=== PATIENT | female | born 1990 | race Caucasian/White ===

== ENCOUNTER 2016-12-04 20:42 | Inpatient (IN) | payer OTHER ==
[~2016-12-04] VITALS: Ht 149.9 cm; Wt 40.0 kg
[~2016-12-04 20:42] MED LIST: ALPRAZOLAM1 MG PO; ATIVAN0.5 MG PO; ATIVAN1 MG PO; BACTRIM DS TAB1 EACH PO; BENADRYL25 MG PO; BENZONATATE100 MG PO; BLOOD GLUCOSE1 EACH MC; BUPRENORPHINE HC2 MG SL; BUPRENORPHINE HC8 MG SL; CALCIUM CARBON200 MG PO; CALCIUM500 MG PO; CATAPRES-TTS 21 EACH TOP; CEPHALEXIN500 MG PO; CIPRO500 MG PO; CLONAZEPAM1 MG PO; CLONIDINE HCL0.1 MG PO; DIAZEPAM2 MG PO; DILAUDID2 MG PO; EFFEXOR XR75 MG PO; ERGOCALCIF50000 UNIT PO; HUMALOG100 UNIT/1 SUB-Q; LAMOTRIGINE100 MG PO; LAMOTRIGINE25 MG PO; LANTUS100 UNIT/1 SUB-Q; LEVAQUIN500 MG PO; LORAZEPAM1 MG PO; METHADONE HCL10 MG PO; METHADONE HCL5 MG PO; METRONIDAZOLE250 MG PO; MIRALAX17 GM PO; MIRTAZAPINE15 MG PO; NAPROSYN375 MG PO; NOVOLOG100 UNITS/ SUB-Q; PANCREAZE PO; PANCRELIPASE D1 EACH PO; PROMETHAZI6.25 MG/5 PO; PROMETHAZINE HC25 M1 PO; PROMETHAZINE12.5 M1 PO; TRAMADOL HCL50 MG PO; ULTRAM50 MG PO; VISTARIL25 MG PO; VISTARIL50 MG PO; VITAMIN D1000 UNI1 PO; VITAMIN D250000 UNIT PO; ZOFRAN ODT4 MG PO; ZOFRAN ODT8 MG PO
--- NOTE | 2016-12-05 01:21 | NUR ---
PT ADMITTED TO ROOM 114 FROM ER WITH DX SMALL BOWEL OBSTRUCTION. THIS IS ONGOING, HAS CYSTIC FIBROSIS, HAS PAIN AND NAUSEA, HAD NOT VOMITED, BUT WAS MEDICATED FOR NAUSEA WELL PAIN. AWAKE AND ALERT, WATCHING TV. IV INFUSIN, PULSE OX READING 92 OXYGEN LEVEL AT THIS TIME.
--- NOTE | 2016-12-05 01:45 | NUR ---
PT ABLE TO RETAIN ENEMA X 10 MIN BEFORE NEEDING TO GET UP. MOST OF ENEMA CAME OUT WITH MANY CHUNKS OF BM. NOTE NO BM WAS PRESENT IN LOWER RECTUM WITH A RECTAL CHECK. PT BOWEL SOUNDS HYPOACTIVE. REQUESTED AND RECEIVED APPLEJUICE. STATED HER PAIN WAS BETTER, WAS HER NAUSEA POST MEDICATION
--- NOTE | 2016-12-05 04:31 | NUR ---
PT COMPLAINED OF PAIN NEAR 0350, DENIES THE NEED TO GET UP TO THE COMMODE. STATES SHE HAS BEEN DOZING OFF AND ON, BUT MOSTLY AWAKE. STATES SHE USES MARIJUANA TO ASSIST IN SLEEPING WHEN AT HOME. MEDICATED WITH PRN ZOFRAN, AND DILAUDID.
--- NOTE | 2016-12-05 06:21 | NUR ---
PT ADMITTED FRO SBO, PAST HISTORY OF SUCH, HAS CYSTIC FIBROSIS, ALERT AND ORIENTATED. NO VOMITING, BUT MEDICATED FOR NAUSEA X 2 THIS SHIFT, WITH PAIN HIGH 9/10 ABD AREA, MED X 2 FOR PAIN WELL. FLEETS ENEMA, GIVEN WITH VERY LITTLE HARD STOOL OUT, VOIDED X 1. FREQUENT USE OF MARIJUANA, USES TO HELP WITH SLEEP, PT AWAKE MOSTLY THIS SHIFT. CLR LIQUIDS, DRANK APPLE JUICE WITH NO EMESIS. HYPOACTIVE BOWELS.
--- NOTE | 2016-12-05 06:47 | NUR ---
ASSESSMENT OF BOWEL SOUNDS, NO CHANGE SINCE ADMISSION. HYPOACTIVE, NO INCREASE IN ABD TENDERNESS, NO VOMITING. FATHER AT BEDSIDE, WITH PT, WATCHING TV.
--- NOTE | 2016-12-05 08:37 | NUR ---
medicated with dilaudid 0.5mg and phenergar 12.5mg
--- NOTE | 2016-12-05 08:49 | NUR ---
PATIENT AWAKE IN BED. EMPTY GARBAGE. FRESH WATER. UPDATE WHITE CARLOS. PATIENT STATED SHE DID NOT NEED ANYTHING AT THIS TIME.
--- NOTE | 2016-12-05 12:04 | NUR ---
WENT IN AND CHECKED ON PATIENT SHE WAS SLEEPING AND I WOKE HER UP TO DO VITALS. SHE SAID SHE JUST WANTED TO SLEEP AND WE KEEP WAKING HER UP. I SAID SORRY AND I WILL LET THE NURSE KNOW.
--- NOTE | 2016-12-05 13:37 | NUR ---
MEDICATED WITH PHENERGAN 12.5MG IV AND DILAUDID 0.5MG IV C/O ABD PAIN AND UPSET STOMACH
--- NOTE | 2016-12-05 14:12 | NUR ---
PT IS RESTING IN BED WITH CALL LIGHT IN REACH. PT DID NOT NEED ANYTHING ELSE
--- NOTE | 2016-12-05 14:45 | NUR ---
DID NOT DISTURB DO TO PATIENT WANTING TO SLEEP. YURIY MCINTOSH TOOK OVER PATIENT CARE SHE DID NOT HAVE MANY PATIENTS.
--- NOTE | 2016-12-05 15:27 | NUR ---
FLEETS ENEMA GIVEN AT THIS TIME
--- NOTE | 2016-12-05 17:20 | NUR ---
PT IS RESTING IN BED WATCHING TV PT DID NOT NEED ANYTHING ELSE
--- NOTE | 2016-12-05 17:28 | NUR ---
Pt has been in bed most of shift. Turns self in bed. Pt on clear liquids, eating very small bites, denies feeling nauseated, no emesis, "Just not hungry", - Pancrease meds not given at noon as pt did not ate lunch. - Continues to c/o back and abd pain, Has been medicated with Dilaudid, toradol per c/o pain and phenergan to decrese stomach irritation from the above meds.- - Thyroid panel drawn earlier as per orders. CBG were 167 this am and 91 at lunch, received ss novolog at 0830. -Pt received fleets enema x1 as per orders, no results, not passing gas very hypoactive bts auscultated. - Pt slightly unsteady on feet this am, better later in day. Currently resting peacefully. will do CBG and give her the 1600 pancrease granules when awake at her request. No resp distress bowel tones present. Up to bsc for voiding, urine dark yellow colored diminished lung sounds bilat, cdb encouraged, cont pulse ox in place. sats WNL ox in place. Currenlty sleeping at this time,
--- NOTE | 2016-12-05 18:25 | NUR ---
MEDICATED WITH DILAUDID 0.5MG IV C/O ABD AND BACK PAIN. NO RESULTS FROM ENEMA. WATCHING TV
--- NOTE | 2016-12-05 20:00 | NUR ---
RECEIVED REPORT AT 1900. FOUND PT IN BED ALERT AND AWAKE. PT WAS TRYING TO DRINK SOME CLEAR LIQUIDS.
--- NOTE | 2016-12-05 22:00 | NUR ---
PT SO FAR RECEIVED 12.5MG OF IV PHENERGAN AND DILAUDED 0.5MG IV. PAIN AND NAUSEA ARE NOT REALLY RELIEVED WITH PRN MEDS AVAILABLE. PT HAS BOWEL TONES IN ALL QUADRANTS AND IS STILL PASSING GAS. BG WAS 143, PT RECEIVED 1 UNIT OF NOVOLOG INSULINE. PT IS WATCHING TV AT THIS TIME.
--- NOTE | 2016-12-06 01:00 | NUR ---
PAIN AND NAUSEA ARE STILL NOT UNDER CONTROL, BOWEL TONES ARE STILL NORMALLY ACTIVE. PT STATED THAT HER SYMPTOMS ARE STAYING THE SAME BUT DOES NOT WANTS AN NG TUBE.
--- NOTE | 2016-12-06 04:00 | NUR ---
PT IS STILL AWAKE. PT STILL HAS NAUSEA. RASH WAS CALLED EARLIER AND SHE INCREASED DILAUDED TO 1MG Q3HRS IV. PT HAS NOT SLEPT AT ALL THIS SHIFT.
--- NOTE | 2016-12-06 04:41 | NUR ---
SO FAR NAUSEA AND PAIN HAVE NOT BEEN CONTROLLED WELL AT ALL. PT IS ONLY GETTING MINIMAL RELIEF FROM BOTH. PT HAS NORMAL ACTIVE BOWEL TONES AND IS PASSING SOME GAS. V/S ARE WNL. PT HAS NOT SLEPT ALL NIGHT.
--- NOTE | 2016-12-06 08:38 | NUR ---
PATIENT SITTING UP IN BED, ROCKING BACK AND FORTH. REQUESTING PHENERGAN AND DILAUDID IV. NOTED 100 ML OF BILE SUBTANCE IN BLUE BAG. ADMINISTERED 12.5 MG OF PHENERGAN IV, PATIENT NOW RESTING BACK WITH EYES CLOSED. RATED PAIN 10/10 ON PAIN SCALE AND STATES " WITH DILAUDID IT TAKES EDGE OFF." PROVIDED PATIENT WITH FAN AND COLD CLOTHS. DISCUSSED POC FOR DAY. ENCOURAGED AMBULATION IN HALLS. WILL ADMINISTER MORNING MEDICATIONS WHEN NAUSEA RESOLVES.
--- NOTE | 2016-12-06 09:03 | NUR ---
CHARGE SPOKE WITH DR. NGUYEN IN REGARDS TO POC WITH PAIN CONTROL AND NAUSEA. NO NEW MEDICATION ORDERS. PATIENT IS TO AMBULATE IN HALLS. DISCUSSED WITH PATIENT, AND DISCUSSED BENEFITS OF AMBULATION IN HALLS. PATIENT STATED " OKAY BUT I JUST DON'T FEEL WELL". ADMINISTERED 1MG OF DILAUDID AND AGREED ON PLAN TO AMBULATE AT 0930. PATIENT NOW RESTING BACK IN BED WITH EYES CLOSED. MEDICATION FROM MORNING PASS CONTINUES TO SIT IN CUP AT BEDSIDE.
--- NOTE | 2016-12-06 09:37 | NUR ---
PATIENT REFUSED TO AMBULATE IN THE HALLS AGREED EARLIER. STATES " I JUST GOT SETTLED, I DON'T WANT TO WALK RIGHT NOW, PLEASE I WILL AT 1000, I PROMISE". REVERBALIZED IMPORTANCE OF AMBULATING IN HALLS. PATIENT VERBALIZED UNDERSTANDING, WILL REAPPROACH AT 1000.
--- NOTE | 2016-12-06 10:15 | NUR ---
PATIENT VERBALIZED FRUSTRATION WITH GETTING UP, BUT ONCE UP AMBULATING IN X2 LAPS, TOLERATED WELL. NO COMPLAINTS OF PAIN AT THIS TIME, AND NAUSEA RESOLVED. PATIENT TAKING MORNING MEDICATIONS NOW.
--- NOTE | 2016-12-06 10:44 | NUR ---
PATIENT HAS NOT VOIDED SINCE 0600 THIS MORNING AND HAS HAD MINIMAL INPUT. ENCOURAGED PATIENT TO GET UP TO BATHROOM, PATIENT REFUSED AT THIS TIME STATING " I JUST DON'T HAVE TO GO". REPORTED TO DR. BARRIGA. NO NEW ORDERS.
--- NOTE | 2016-12-06 13:00 | NUR ---
REPORT RECEIVED FROM ELI THOMPSON, ASSUMED CARE FOR PATIENT. PATIENT STATING 10/10 PAIN IN STOMACH AND BACK, COMPLAINT OF NAUSEA. IV PHENERGEN, AND IV DILAUDID ADMINISTERED TO PATIENT. PATIENT NOW OFF FLOOR FOR CT. IV SALINE LOCKED.
--- NOTE | 2016-12-06 15:13 | NUR ---
PT STATING 8/10 PAIN IN STOMACH, BACK. PT STILL COMPLAINING OF NAUSEA. WILL CONTINUE TO REASSESS. PT REQUESTED SOME APPLE JUICE. CALL LIGHT AT BEDSIDE.
--- NOTE | 2016-12-06 15:50 | NUR ---
AFTERNOON ASSESSMENT COMPLETE. BOWEL TONES PRESENT IN ALL QUADRANTS, LUNGS SOUND CLEAR IN ALL LOBES. PT COMPLAINS OF 8/10 PAIN, PRN IV DILAUDID 1 MG ADMINISTERED. PT ALSO COMPLAINS OF NAUSEA, NO VOMITTING. PT DID TAKE SOME BITES OF JELLO AND DRINKS OF APPLE JUICE, TOLERATED WELL. PT FRIEND AT BEDSIDE, IV NS INFUSING AT 125 ML/HR. PT STATES THAT MAYBE HAS HAD SOME FLATUS. WILL CONTINUE TO REASSESS.
--- NOTE | 2016-12-06 15:52 | NUR ---
AWAKE IN BED. SAID SHE WAS FELLING NAUSEATED. TOLD JAY HER NURSE. FRESH ICE WATER. REFUSED SHOWER
--- NOTE | 2016-12-06 16:58 | NUR ---
PT COMPLAINING OF NAUSEA. PRN IV PHENERGEN ADMINISTERED. PT STATES PAIN AT 8/10, IV DILAUDID "HELPS A LITTLE BIT". WILL CONTINUE TO ASSESS. CALL LIGHT IN REACH.
--- NOTE | 2016-12-06 18:15 | NUR ---
PT HAS CONSISTENLTY HAD 8-10/10 PAIN IN ABDOMEN AND BACK WELL NAUSEA. DILAUDID AND PHENERGEN IV MEDICATIONS HAVE BEEN ADMINISTERED ORDERED THROUGHOUT SHIFT. PT DID HAVE SOME EMESIS EARLY IN SHIFT. PT WAS ABLE TO AMBULATE TWO LAPS AROUND THE FLOOR TODAY. IV NS INFUSING AT 125 ML/HR, CONTINUES TO BE MONITORED ON TELE. BOWEL SOUNDS ACTIVE IN ALL QUADRANTS.
--- NOTE | 2016-12-06 19:30 | NUR ---
RECEIVED REPORT AT 1900. FOUNG PT SITTING IN BED BEING NAUSEADED. PT STATED PAIN IS 9/10.
--- NOTE | 2016-12-06 21:45 | NUR ---
ABD SOUNDS ARE ALL HYPOACTIVE, PT IS NOT PASSING GAS, PT STILL HAS NAUSEA AND 9/10 PAIN. ALL RIGHT LOBES ARE CLEAR, LEFT LOBES ARE DIMINISHED. V/S ARE WNL.
--- NOTE | 2016-12-07 00:55 | NUR ---
PT AT THIS TIME IS SLEEPING.
--- NOTE | 2016-12-07 03:44 | NUR ---
PT IS AWAKE NOW WITH NAUSEA AND PAIN. WARM PADS WERE PROVIDED
--- NOTE | 2016-12-07 04:34 | NUR ---
PT IS SLEEPING AT THIS TIME.
--- NOTE | 2016-12-07 04:34 | NUR ---
THERE HAS BEEN NO CHANGE IN STATUS FOR THIS PT. PT IS STILL VERY PAINFUL, PT HAS CONSTANT NAUSEA. URINE OUTPUT FOR FIRST 8HRS OF SHIFT WAS 475ML. BOWEL TONES ARE HYPOACTIVE IN ALL FOUR QUADRANTS AND TENDER TO TOUCH. ABD IS MODERATELY DISTENDED. V/S ARE WNL.
--- NOTE | 2016-12-07 05:35 | NUR ---
0700 MEDICATION WILL NOT BE GIVEN BY ME BECAUSE PT ONLY TAKES IT WHILE EATING. I WILL RELATED THAT TO DAY SHIFT.
--- NOTE | 2016-12-07 07:05 | NUR ---
BEDSIDE REPORT RECEIVED FROM ELI SALAMANCA. ASSUMED CARE FOR PT. PT RESTING IN BED WATCHING TV, COMPLAINING OF 8/10 PAIN, NAUSEA. WILL CONTINUE TO REASSESS.
--- NOTE | 2016-12-07 08:13 | NUR ---
IN PT ROOM, ATTEMPTS X 2 AT BLOOD DRAW BY RNS AFTER LAB UNABLE TO DRAW BLOOD FOR ORDERED LABS. PT BLOOD GLUCOSE CHECKED, 60. OFFERED PT CLEAR LIQUID TRAY, JELLO, JUICE. PT ALSO EXPERIENCING NAUSEA, IV PHENERGEN ADMINISTERED. EXPLAINED TO PT IMPORTANCE OF EATING, DRINKING TO BRING UP BLOOD SUGAR LEVELS. PT STATED UNDERSTANDING. PT FRUSTRATED AT MULTIPLE ATTEMPTS FOR LAB DRAW. CALL LIGHT IN REACH, WILL CONTINUE TO ASSESS.
--- NOTE | 2016-12-07 09:42 | NUR ---
PT USED BEDSIDE COMMODE THEN RETURNED TO BED. PT DID NOT NEED ANYTHING ELSE
--- NOTE | 2016-12-07 11:05 | NUR ---
BLOOD GLUCOSE RE CHECKED, 164. PATIENT'S FATHER IN ROOM AT BEDSIDE, CALL LIGHT IN REACH.
--- NOTE | 2016-12-07 11:15 | NUR ---
PATIENT UP, AMBULATED 2 LAPS AROUND THE MED SURG FLOOR. PT TOLERATED WELL. STILL COMPLAINT OF ABDOMINAL PAIN. STATES "FEELS LIKE PARTS OF STOMACH IS GOING TO BURST". PT BACK TO BED, SITTING UP WITH FATHER AT BEDSIDE.
--- NOTE | 2016-12-07 11:24 | NUR ---
PATIENT SITTING UP IN BED. PATIENT WILL CALL WHEN SHE IS READY FOR A SHOWER.
--- NOTE | 2016-12-07 12:00 | NUR ---
ELI FRANCISCO ATTEMPT TO GET BLOOD FROM IV SITE FOR LABS. SITE WILL NOT YIELD ENOUGH BLOOD RETURN FOR ORDERED LABS. PT REFUSED ADDITIONAL NEEDLE POKES FROM LAB AT THIS TIME.
--- NOTE | 2016-12-07 12:47 | NUR ---
PT REQUESTING HEAT PACKS FOR ABDOMEN. COMPLAINING OF NAUSEA, PAIN AFTER IV PHENERGEN, IV DILAUDID ADMINISTRATION. WILL CONTINUE TO ASSESS. PT STILL HAS NOT HAD BM, BUT STATES HAS PASSED GAS. CALL LIGHT IN REACH.
--- NOTE | 2016-12-07 13:14 | NUR ---
CHECKED ON PT, PT SLEEPING, AWOKE WHEN RN ENTERED ROOM. PT DENIES NEEDING TO USE RESTROOM. HAD 400 ML URINE OUTPUT AT 1000. LEFT PT TO REST. WILL REASSESS.
--- NOTE | 2016-12-07 15:06 | NUR ---
PT UP TO COMMODE. STATING 12/05 PAIN IN ABDOMEN. FLATUS HEARD BY RN. PT ABLE TO AMBULATE 2 LABS AROUND FLOOR. EXPERIENCING NAUSEA WITH AMBULATION ESPECIALLY. PT SAID SHE FELT LIKE SHE WAS GOING TO PASS OUT DUE TO THE NAUSEA. 300 ML OUT IN URINE, NO BOWEL MOVEMENT AT THIS TIME. WILL CONTINUE TO ASSESS.
--- NOTE | 2016-12-07 15:43 | NUR ---
VERBAL ORDER FROM DR. NGUYEN FOR LAB TO DC ORDERED LABS NOT ABLE TO BE DRAWN WITH MULTIPLE ATTEMPTS, PT REFUSING FURTHER NEEDLE POKES AT THIS TIME. UPDATED ON PT CONDITION, PASSING GAS, NO BM.
--- NOTE | 2016-12-07 16:31 | NUR ---
PT COMPLAINING OF NAUSEA, PRN IV PHENERGEN ADMINISTERED. PT COMPLAINS OF 8/10 PAIN IN ABDOMEN. BOWEL TONES PRESENT IN ALL QUADRANTS, ABDOMEN STILL DISTENDED, TENDER. PTS FATHER IN ROOM.
--- NOTE | 2016-12-07 18:22 | NUR ---
PT ALERT, ORIENTED X3, DOES NOT KNOW DATE. PT STARTED ON ORAL LACTULOSE, BOWEL TONES ACTIVE IN ALL QUADRANTS, UP TO COMMODE FOR BMS MULTIPLE TIMES TODAY. PT ADVANCED TO ADA DIET, TOLERATING MEALS WELL. URINE QUANTITY SUFFICIENT, BREN[place] WAS DC'D TODAY. PT CONTINUES TO HAVE EDEMA IN ANKLES BILATERALLY. LUNGS SOUND CLEAR, PO LASIX ADDED TO MEDICATIONS. INSULIN DETEMIR BID, REGULAR INSULIN 10 UNITS TID WITH GLUCOSE CHECKS ALSO ORDERED WITH MEALS. PTS BLOOD GLUCOSE WAS 338 PRIOR TO DINNER. PT HAD VISITS FROM [place] ([place]) AND GRANDDAUGHTERS MANDO AND JUSTIN. VITAL SIGNS, BP WNL TODAY.
--- NOTE | 2016-12-07 18:33 | NUR ---
LAB WAS UNABLE TO DRAW MORNING LABS TODAY, LABS CANCELLED PER DR. PATRICK TAN AND PATIENTS REFUSAL TO BE POKED ADDITIONALLY. IV SITE DID NOT YIELD SUFFICIENT AMT FOR ORDERED LABS. PT ABLE TO AMBULATE 2 LAPS 2X THIS SHIFT. PT CONTINUES TO COMPLAIN OF NAUSEA AND PAIN IN ABDOMEN OF 8-10/10 PAIN. PT HAS STILL NOT HAD BOWEL MOVEMENT, BUT HAS PASSED FLATUS. PRN DILAUDID AND PHENERGEN HAVE BEEN ADMINISTERED AVAILABLE FOR PT. PT'S EVENING GLUCOSE WAS 90.
--- NOTE | 2016-12-07 23:15 | NUR ---
PT REQUESTED SOMETHING FOR NAUSEA. MEDICATED WITH ZOFRAN. WHEN ASSESSING PT, ACTIVE BOWEL SOUNDS, STATES SHE HAS BEEN PASSING GAS, BUT HAVING SHARP STABING PAINS IN STOMACH. WONDERING IF SHE HAS A BOWEL MOVEMENT, WOULD SHE BE ABLE TO LEAVE OR WOULD SHE HAVE STAY LONGER. REASSURED PT SHE WOULD BE ABLE TO HAVE THAT CONVERSATION WITH HER DRLeo WHEN THAT OCCURS.
--- NOTE | 2016-12-08 00:18 | NUR ---
PT CALLED, REQUESTED SOMETHING FOR PAIN, 01/05 PAIN. MEDICATED WITH PRN DILAUDID IV. PT AWAKE WATCHING TV.
--- NOTE | 2016-12-08 01:29 | NUR ---
PT CALLED TO LET RN KNOW IV PUMP SOUNDING. ONCE IN ROOM, PT REQUESTED PHENERGAN FOR NAUSEA. CONTINUES TO HAVE ACTIVE BOWEL SOUNDS, HAS NOT VOMITED SINCE THIS NURSE CAME ON SHIFT AT 1900. MEDICATED WITH PHENERGAN IV, REPLACED IV BAG. PT STATES WHILE HER PAIN HAS RESOVED SLIGHTLY, SHE STILL HURTS. ENCOURAGED PT TO LAY ON LEFT SIDE, BUT SHE CHOSES TO LAY ON BACK.
--- NOTE | 2016-12-08 03:30 | NUR ---
UNABLE TO GIVE THE PAIN MED IV DUE TO INFILTRATED IV SITE. RIGHT HAND SWOLLEN, FOR ARM SLIGHTLY SWOLLEN, PT DENIES PAIN IN HAND/ARM. NO REDDNESS. IV DC'D, WARM PACK AND ELEVATION TO RIGHT ARM/HAND. SUPERVIOR ATTEMPTING TO RESTART PT, PT IS A DIFFICULT START.
--- NOTE | 2016-12-08 04:25 | NUR ---
NOTIFIED DR. NGUYEN OF THE PT DIFFICULTY TO HAVE IV STARTED, AWAITING TACTICAL AIR CONTROL PARTY MANAGER TO ASSESS. ORDER RECEIVED FOR PO DILUADID AT THIS TIME.
--- NOTE | 2016-12-08 04:34 | NUR ---
MED WITH 2 MG DILAUDID PO GIVEN AT THIS TIME. PT ANXIOUS, REASSURED PT THAT MOLD CAR PUSHER HAS SPOKEN TO RESEARCH COMPLIANCE SPECIALIST. UP TO THE BATHROOM AT THIS TIME
--- NOTE | 2016-12-08 06:27 | NUR ---
PT REPORTS 10/10 ABDOMINAL PAIN, 1MG IV DILAUDID GIVEN. PT ALSO REPORTS NAUSEA, 12.5MG IV PHENERGAN ADMINISTERED. PT DENIES FURTHER REQUESTS.
--- NOTE | 2016-12-08 06:41 | NUR ---
PT REQUIRED MULT TIMES FOR IV STICK POST INFILTRATED IV IN RIGHT HAND. UP AND AMBULATED CURRIE X 1, NO BM'S. VOIDING WITHOUT DIFFICULTY. MED FOR NAUSEA AND PAIN MULT TIMES THIS SHIFT. HYPOACTIVE BOWEL SOUNDS. ANXIOUS WHEN IV STARTS WERE UNABLE. TECHNOLOGY COACH ABLE TO START IV AFTER MULT ATTEMPTS. DR. NGUYEN AWARE OF THE DIFFICULTY OF THE IV STARTS.
--- NOTE | 2016-12-08 06:51 | NUR ---
PATIENT REQUEST TWO HOT PACKS AND A WARM BLANKET. CALL LIGHT WITHIN REACH. NO FURTHER REQUEST AT THIS TIME.
--- NOTE | 2016-12-08 09:00 | NUR ---
SHIFT ASSESSMENT DONE. PATIENT REPORTED 9/10 ABD PAIN. PATIENT WAS MEDICATED. IV SITE ASSESS AND SKIN IS COLD AND UPPER ARM APPEARS TO BE SWELLING. IV STOP AND NOTIFIED DR NGUYEN, SHE REQUEST CONSULT WITH DR GARNER FOR CENTRAL LINE PLACEMENT. PATIENT WAS INFORMED ABOUT THAT.
--- NOTE | 2016-12-08 11:00 | NUR ---
patient has been resting all morning, the nurse approached me and let me know that she needs to ambulate 3 times today but she did not want to walk at the time.
[2016-12-08] MEDS ORDERED: HYDROXYZINE PAM50 MG PO (11:11)
[2016-12-08] MEDS ORDERED: PROMETHAZINE HC50 MG PO (11:12)
--- NOTE | 2016-12-08 11:14 | NUR ---
Medications reconciled with pharmacy records and patient interview. Buprenorphine held while inpatient, pain control with hydromorphone
--- NOTE | 2016-12-08 11:25 | NUR ---
DR NGUYEN AND DR GARNER WERE IN PATIENT ROOM TO DISCUSS PLAN OF CARE. PATIENT AGREED WITH MD FOR CENTRAL LINE PLACEMENT. FATHER AT BEDSIDE.
--- NOTE | 2016-12-08 12:05 | NUR ---
RIGHT INTERNAL JUGULAR INSERTED BY DR GARNER. PATIENT TOLERATED WELL. XRAY CALLED.
--- NOTE | 2016-12-08 13:10 | NUR ---
DR GARNER WAS CALLED REGARDING XRAY RESULT FOR CENTRAL LINE PLACEMENT. DR GARNER OK TO USE LINE.
--- NOTE | 2016-12-08 13:35 | NUR ---
PATIENT REQUESTED PAIN MED, FOR 9/10 ABD PAIN. PATIENT WAS MEDICATED. WAS TO BATHROOM TO VOID. REMAINS NAUSEATED DESPITE ANTIEMETIC. NO APPARENT DISTRESS NOTED.
--- NOTE | 2016-12-08 17:07 | NUR ---
PATIENT RESTING IN BED, REPORTED PAIN AND NAUSEA DESPITE PAIN AND ANTIEMETIC. RESTING IN BED AT THIS TIME.
--- NOTE | 2016-12-08 18:19 | NUR ---
PATIENT HAD A FAIR DAY. INTERNAL JUGULAR PLACED BY DR GARNER. AND OK TO USE. PATIENT AMBULATE IN HER ROOM 3 TIMES. HAD A BM THIS PM. QS U/O. STILL COMPLAINT OF CONSTANT NAUSEA AND PAIN. FLUID INFUSING @125ML/HR. PATIENT IS WEAK. SBA.
--- NOTE | 2016-12-08 19:15 | NUR ---
BEDSIDE REPORT RECEIVED BY OFFGOING RN. PT REPORTS NAUSEA, PRN PHENERGRAN TO BE ADMINISTERED BY OFFGOING RN. PT SITTING UP IN BED WITH HER DAD AT BEDSIDE. DENIES OTHER NEEDS. CALL LIGHT WITHIN REACH.
--- NOTE | 2016-12-08 20:05 | NUR ---
PT ASSESSMENT COMPLETED. PT STATES THAT PAIN AND NAUSEA ARE A LITTLE BETTER. STAT LAB DRAW COMPLETED VIA IJ LINE, LINE FLUSHED, 10 ML OF BLOOD WASTED. PT TOLERATED WELL. PT REPORTS TENDERNESS TO ABD WHEN AUSCULTATING BT'S. BT'S ACTIVE. PT REPORTS MED SIZED SOFT BM "A LITTLE WHILE AGO". ORDER FOR GASTROGRAFIN EXPLAINED TO PT. PT STATES THAT SHE DOESN'T THINK SHE CAN DRINK IT WITHOUT BEING SICK. EDUCATION AND ENCOURAGEMENT PROVIDED. PT STATES THAT SHE WILL ATTEMPT TO DRINK THE GASTROGRAFIN IN APPLE JUICE.
--- NOTE | 2016-12-08 20:45 | NUR ---
ORDER FOR 100 ML OF GASTROGRAFIN CLARIFIED AND CONFIRMED WITH MD. GASTROGRAFIN DILUTED IN APPLE JUICE PER PT REQUEST. PT DRINKS 1 SIP, STATES "I CAN'T DRINK THIS, IT TASTES LIKE BARF!" EDUCATION PROVIDED. PT STATES THAT SHE WILL TRY TO DRINK IT. WILL CONTINUE TO MONITOR.
--- NOTE | 2016-12-08 21:50 | NUR ---
REASSESSED WHETHER PT TAKING GASTROGRAFIN. PT STATES THAT SHE WILL NOT BE ABLE TO CONTINUE DRINKING IT. STATES THAT IT TASTES TOO TERRIBLE. MD NOTIFIED. ORDER FOR BOWEL PREP M[place]AL[place] IN GATORADE ORDER RECEIVED. PT NOTIFIED. SHE AGREES THAT SHE WILL BE ABLE TO DRINK THE GATORADE. DENIES OTHER NEEDS AT THIS TIME. CALL LIGHT WITHIN REACH.
--- NOTE | 2016-12-08 22:45 | NUR ---
PT CALLS, REPORTS NAUSEA AND PAIN. PRN ZOFRAN AND DILAUDID ADMINISTERED. PT HAS YET TO DRINK ANY GATORADE, STATES THAT SHE HAS BEEN TOO NAUSEATED. PT REPORTS THAT SHE HAS BEEN IN THE BATHROOM, HAD ANOTHER BM. PT DENIES OTHER NEEDS AT THIS TIME, SITTING UP IN BED WATCHING TV. CALL LIGHT WITHIN REACH.
--- NOTE | 2016-12-09 00:19 | NUR ---
PT REPORTS NAUSEA, REQUESTS PRN PHENERGRAN. ADMINISTED DILULTED IN 20 ML OF NS, INFUSED OVER 10 MINUTES ON THE PUMP. WILL REASSESS IN 10 MINUTES. PT DENIES OTHER NEEDS. STATES THAT SHE HAS BEEN PASSING GAS. BECKY CONTINUES TO SIT AT BEDSIDE. PT REPORTS THAT SHE HAS BEEN ABLE TO DRINK "SOME". ENCOURAGED PT TO DRINK MORE. PT STATES UNDERSTANDING. CALL LIGHT WITHIN REACH.
--- NOTE | 2016-12-09 00:59 | NUR ---
PT RESTING IN BED WITH EYES CLOSED. DOES NOT WAKE UPON FIELD CANE SCALER HELPER IN DOORWAY. CALL LIGHT WITHIN REACH.
--- NOTE | 2016-12-09 02:00 | NUR ---
PT SITTING UP IN BED, REPORTS PAIN INCREASED TO 8/10. REQUESTS PRN DILAUDID, ADMINISTERED. PT DENIES OTHER NEEDS. PT CONTINUES TO WORK ON 1ST CUP OF BOWEL PREP. WILL CONTINUE TO MONITOR. CALL LIGHT WITHIN REACH.
--- NOTE | 2016-12-09 02:45 | NUR ---
PT RESTING WITH EYES CLOSED, RESPIRATIONS EVEN AND UNLABORED. PT WAKES EASILY UPON WRITERS ENTRY TO ROOM. PT RATES PAIN 8/10 TO ABD. PT ASKS HOW MUCH BOWEL PREP SHE WILL HAVE TO DRINK. EDUCATION REINFORCED. PT STATES UNDERSTANDING. FINISHING 1ST CUP WHILE WOODWORKING MACHINIST AT BEDSIDE. PT ASSESSMENT COMPLETE. BT'S ACTIVE, PT REPORTS ABD TENDERNESS WHILE AUSCULTATING BT'S. ABD CONTINUES TO BE FIRM. PT UP TO BEDSIDE COMMODE TO HAVE BM. PT STATES CONCERN THAT THE BOWEL PREP IS "OVER DOING IT". PT'S CONCERNS ADRESSED. PT STATES UNDERSTANDING. CONTINUE TO ENCOURAGE PT TO DRINK BOWEL PREP. PT DENIES FURTHER NEEDS. CALL LIGHT WITHIN REACH.
--- NOTE | 2016-12-09 03:48 | NUR ---
PT RESTING IN BED WITH EYES CLOSED. RESPIRATIONS EVEN AND UNLABORED. PT APPEARS TO BE SLEEPING. PT WAKES BRIEFLY WHEN CRANBERRY SORTER ENTERS THE ROOM, QUICKLY FALLS BACK TO SLEEP. CALL LIGHT WITHIN REACH.
--- NOTE | 2016-12-09 04:54 | NUR ---
PT AWAKE MOST OF NIGHT, DILAUDID X 2 AND PHENERGRAN X 1 THIS SHIFT. ABD DISTENDED, FIRM, TENDER. BT'S ACTIVE. BM X 3 THIS SHIFT. CONTINUES TO C/O NAUSEA/PAIN. BOWEL PREP INITIATED FOR EVACUATION. PT IS DRINKING GATORADE VERY SLOWLY WITH CONTINUAL ENCOURAGEMENT. IJ LINE WITH 3 LUMENS. NS @ 125. ACCUCHECKS, SSI, AND LONG ACTING INSULIN. PT INDEPENDENT IN ROOM BUT WEAK.
--- NOTE | 2016-12-09 05:22 | NUR ---
PT UTILIZES CALL LIGHT REQUESTING PAIN MEDICATION. RATES PAIN 8/10 TO ABD AFTER UP USING BEDSIDE COMMODE. PRN DILAUDID ADMINISTERED. PT DOZING OFF AND ON DURING SLOW PUSH OF DILAUDID. PT REQUESTS PHENERGRAN FOR NAUSEA. DENIES OTHER NEEDS AT THIS TIME. ANOTHER CUP OF BOWEL PREP PROVIDED. PT STATES "I DON'T THINK I CAN KEEP DRINKING THIS." ENCOURAGEMENT PROVIDED. CALL LIGHT WITHIN REACH.
--- NOTE | 2016-12-09 09:33 | NUR ---
PT SITTING UP IN BED. DRANK APPLE JUICE, DID NOT HAVE ANY FURTHER BREAKFAST. C/O NAUSEA, NO EMESIS. GAVE ZOFRAN 4 MG ODT PRN.
--- NOTE | 2016-12-09 10:31 | NUR ---
PT RESTING QUIETLY, NO S/S DISTRESS OR DISCOMFORT.
--- NOTE | 2016-12-09 13:54 | NUR ---
PT SITTING UP IN BED, WITH TV ON. DAD AT BEDSIDE. PT STRUGGLED TO DECIDE IF I SHOULD COME IN OR NOT. I INTRODUCED MYSELF, EXTENDED A BLESSING AND TOLD HER I WOULD CHECK BACK LATER.
--- NOTE | 2016-12-09 14:49 | NUR ---
DR. ADAMS DISCUSSED WHEN TO RESUME PT'S HOME MEDICAITON, BUPRENORPHINE WITH MARIA VICTORIA WEST, PHARMACIST. DR. ADAMS INSTRUCTED THIS RN TO HOLD AFTERNOON DOSE OF BUPRENORPHINE, AND THAT THIS MEDICATION MAY BE STARTED AT EVENING DOSE.
--- NOTE | 2016-12-09 16:42 | NUR ---
PT UP AMBULATING IN HALLS WITH MOTHER. STEADY ON FEET, TOLERATING WELL.
--- NOTE | 2016-12-09 19:20 | NUR ---
BEDSIDE REPORT RECEIVED FROM OFFGOING NURSE. PT SITTING UP IN BED WITH HER MOTHER PRESENT. PT DENIES NEEDS AT THIS TIME. CALL LIGHT WITHIN REACH.
--- NOTE | 2016-12-09 21:00 | NUR ---
PT ASSESSMENT COMPLETE. PT RATES PAIN 7/10. SCHEDULED PAIN MEDICATION ADMINISTERED. PT QUESTIONING WHEN SHE WILL BE ABLE TO HAVE HER PHENERGRAN. PT REQUESTING CHICKEN BROTH. STATES THAT SHE WOULD LIKE TO HAVE TOMATO SOUP AND GRILLED CHEESE SANDWHICH. UNDERSTANDS THE CURRENT LIMITIATIONS OF HER DIET ORDER. EDUCATION PROVIDED REGARDING TAKING DIET SLOWLY. PT STATES UNDERSTANDING. ABDOMEN REMAINS FIRM. BT'S ACTIVE. PT REPORTS TENDERNESS/WINCES WITH ABDOMINAL AUSCULTATION. PT HAS SMALL AMOUNT OF GASTROGRAFIN REMAINING AT BEDSIDE. PT DENIES FURTHER NEEDS AT THIS TIME. CALL LIGHT WITHIN REACH.
--- NOTE | 2016-12-09 22:30 | NUR ---
PT UTILIZES CALL LIGHT, REQUESTS MORE CHICKEN BROTH. PT AGAIN INQUIRING REGARDING TIMING OF PHENERGRAN ADMINISTRATION. EDUCATION REINFORCED REGARDING MEDICATION AVAILABILITY. PT STATES UNDERSTANDING. PT'S MOTHER PLANS TO STAY THE NIGHT WITH PT; ASSISTED WITH MAKING COUCH INTO BED. PT DENIES FURTHER NEEDS. CALL LIGHT WITHIN REACH.
--- NOTE | 2016-12-10 01:13 | NUR ---
PATIENT CALLED, STATED SHE NEEDS HELP. SHE HAD BM/LOOSE STOOL ALL OVER HER 2GOWNS AND ON BED SHEETS. TOOK HER TO THE TOILET HELPED HER CLEANED UP, FROM WAIST TO TOES, CHANGED GOWN AND BACK TO BED. PATIENT STATED SHE FELT EMBARRASSED. SHE
--- NOTE | 2016-12-10 03:45 | NUR ---
PT RESTING IN BED WITH EYES CLOSED. RESPIRATIONS EVEN AND UNLABORED. PT APPEARS TO BE SLEEPING. CALL LIGHT WITHIN REACH.
--- NOTE | 2016-12-10 07:11 | NUR ---
PT ASSESSMENT COMPLETED AFTER PT SLEPT THROUGH THE NIGHT. PT DENIES PAIN. BEGINS COUGHING/WRETCHING COMPLAING OF NAUSEA. STATES "MY NAUSEA IS SO BAD IN THE MORNING." PT UP TO USE THE BATHROOM. PT HAVING LIQUID BOWEL MOVEMENTS. PT STATES "THIS IS WHAT I WARNED THEM ABOUT", "I SHOULD NOT HAVE TO DRINK ANYTHING ELSE TO MAKE ME HAVE A BOWEL MOVEMENT RIGHT?" PT'S ABDOMEN REMAINS DISTENDED, TENDER. PT CONTINUES TO REQUEST DIET ADVANCEMENT. STATES "I JUST WANT TO GO HOME, I'M OVER IT". PHENERGRAN ADMINISTERED FOR NAUSEA. PT STATES IMPROVEMENT.
--- NOTE | 2016-12-10 07:36 | NUR ---
PT REQUESTED TO ADVANCE DIET. ALSO STATED THAT SHE DID NOT WANT TO TAKE GASTROGRAFIN THIS AM. NOTIFIED DR. ADAMS OF ABOVE NOTED VIA TELEPHONE, RECIEVED TORB: ADVANCE DIET TOLERATED. DR. ADAMS AWARE THAT PT IS GOING TO REFUSE AM GASTROGRAFIN.
--- NOTE | 2016-12-10 08:26 | NUR ---
NOTIFIED DR. ADAMS THAT PT WAS HYPOGLYCEMIC THIS AM, 69, THEN 72, AND THAT PT IS EATING FULL LIQUIDS AND DRINKING ORANGE JUICE AND CHOCOLATE MILK, AND WILL BE RECHECKED. ASKED IF HE WANTED PT TO RECIEVE AM DOSE OF LEVAMIR, DR. ADAMS ASKED THAT THIS DOSE BE HELD.
--- NOTE | 2016-12-10 09:15 | NUR ---
PT'S BG RECHECKED, NOW 129. PT DENIES S/S HYPOGLYCEMIA.
--- NOTE | 2016-12-10 10:06 | NUR ---
PT IN BED, SLEEPING SOUNDLY. NO S/S DISTRESS OR DISCOMFORT. PT ATE YOGURT, APROXIMATELY 1/2 OF APPLESAUCE, JELLO, DRANK ORANGE JUICE AND CHOCOLATE MILK FOR BREAKFAST.
[2016-12-10] MEDS ORDERED: MIRALAX17 GM PO (10:18)
--- NOTE | 2016-12-10 12:53 | NUR ---
VISITED WITH PT ON DC IN [facility]. SHE WAS HOLDING SOME ROSES-CREATING QUITE A STIR WITH STAFF WITH THE [employer] AND [employer]. THIS SEEMED TO GIVE HER QUITE A BIT OF ENJOYMENT. HER MOTHER THANKED ALL THE STAFF FOR CARING FOR HER. EXTENDED A BLESSING-SHE GAVE A BIG SMILE
--- NOTE | 2017-01-05 12:15 | OR ---
[facility] [address], [place] [address] Signed DATE OF SERVICE: 12/08/2016 PREOPERATIVE DIAGNOSES: Dehydration, poor peripheral access, needing a central venous access. Cystic fibrosis and multiple medical problems, currently inspissation of enteric secretions and partial small bowel obstruction. POSTOPERATIVE DIAGNOSES: Dehydration, poor peripheral access, needing a central venous access. Cystic fibrosis and multiple medical problems, currently inspissation of enteric secretions and partial small bowel obstruction. PROCEDURE: Right internal jugular Arrow blue tip triple-lumen catheter placement. SURGEON: Caron Garner MD. ANESTHESIA: Lidocaine 1%. INDICATION: This 26-year-old white woman is a patient of Dr. Penelope Harkins and admitted for possible bowel obstruction, most likely related to inspissated secretions of upper gastrointestinal tract. She usually takes MiraLAX and is on pancreatic enzyme replacement therapy but has had a bout of essentially obstipation. Peripheral access is extremely poor and various attempts including use of ultrasound has been u ndertaken to allow for fluid administration, medications, and so forth but a central venous catheter is recommended by Dr. Harkins. I discussed the risks of bleeding, infection, pneumothorax and so forth with her and her father who attends to her. She understands and wished to proceed. FINDINGS: Dark nonpulsatile blood was noted from the right internal jugular vein without problems. The catheter was placed without problem and good function is noted. A postprocedure chest x-ray is pending. Procedure in the supine position with the face turned to the left the right neck and upper torso were prepared with a chlorhexidine solution and draped sterilely. Using mask, glove, gown, etc., as per protocol sterile technique was maintained. Sterile drape was placed over t h e right neck, and using air blue tip triple-lumen catheter kit, 1% lidocaine injected over the right sternocleidomastoid muscle. Using the Seldinger technique, the right internal jugular vein was easily accessed showing dark nonpulsatile blood. A flexible J-wire was passed down the needle and the needle was removed. The site was incised with an #11 blade and dilated with a Electronically Signed By: CARON GARNER MD 01/05/17 1215 PATIENT NAME: JESSY SEN OPERATIVE REPORT DATE OF : 89 PHYSICIAN: CARON GARNER MD REPORT #: [id number] REPORT IS CONFIDENTIAL AND NOT TO BE RELEASED WITHOUT AUTHORIZATION [facility] [address], [place] [address] Signed balloon dilator and a previously inspected and irrigated Arrow blue tip triple-lumen catheter passed over the wire. The wire was removed. Aspiration on the distal port showed dark nonpulsatile blood. The catheter was withdrawn several centimeters given her small body habitus, placed in a gentle curve and an enclosed white collar device applied. The catheter was sewn to the skin in several areas and a SorbaView dressing was applied. A postprocedure chest x-ray is pending. She tolerated the procedure well. Blood loss was minimal and there were no complications. MD STEVENSON Ramos/Hugh /[id number] cc: Dr. Shahana Rascon Electronically Signed By: CARON GARNER MD 01/05/17 1215 PATIENT NAME: MCKINLEYJESSY KETAN OPERATIVE REPORT DATE OF : 89 PHYSICIAN: CARON GARNER MD REPORT #: [id number] REPORT IS CONFIDENTIAL AND NOT TO BE RELEASED WITHOUT AUTHORIZATION
--- NOTE | 2017-01-05 12:15 | CONS ---
[facility] [address], [place] [address] Signed DATE OF SERVICE: 12/08/2016 REQUESTING PHYSICIAN: Dr. Harkins. PROBLEM: Poor peripheral access. HISTORY: This 26-year-old white woman is well known to me from the past. She is very thin and cachectic, generally speaking, related to her underlying cystic fibrosis. She has numerous other medical problems including pancreatic insufficiency typical of cystic fibrosis as well as chronic recurrent abdominal pain and small bowel obstructive type symptoms. She was admitted by Dr. Harkins for symptoms of partial s mall bowel obstruction. She does take large doses or pancreatic enzymes as well as MiraLAX, but suffered dehydrations and has been admitted to the hospital. She was noted to have hyperkalemia as an electrolyte disorder as well as dehydration clinically. Multiple attempts have been made for peripheral access including use of an ultrasound today that was unsuccessful. A PICC line team is not available for several days. I was asked by Dr. Harkins for consideration of central venous access to provide for intra venous fluid administration, blood draws, and so on. REVIEW OF SYSTEMS: She denies any shortness of breath or chest pain. She is generally feeling a bit better. She does feel thirsty. PHYSICAL EXAMINATION: GENERAL: A very thin pale white woman accompanied by her father. NECK: Trachea is midline. Both clavicles are not deformed. CHEST: Normal respiratory excursion. HEART: Pulses regular. EXTREMITIES: No clubbing, cyanosis, or edema. LABORATORY STUDIES: A platelet count of 197,000, white count at admission 19.5, hematocrit 45.7, currently white count 10.9. Toxicology shows tricyclic antidepressants, THC, and buprenorphine concordant to known ingestants. ASSESSMENT: The patient has poor peripheral access and needs intravenous fluids and other medications to be administered and poor peripheral access has precluded that. Discussed with the patient and her father the risks of bleeding, infection, pneumothorax if a Electronically Signed By: CARON GARNER MD 01/05/17 1215 PATIENT NAME: JESSY SEN CONSULTATION DATE OF : 89 PHYSICIAN: CARON GARNER MD REPORT #: [id number] REPORT IS CONFIDENTIAL AND NOT TO BE RELEASED WITHOUT AUTHORIZATION [address] [address] Signed subclavian approach to be used and other unforeseen complications related to placement of such catheter. They understand and wish to proceed. MD STEVENSON Ramos/Hugh /[id number] cc: Dr. Abiodun Harkins Electronically Signed By: CARON GARNER MD 01/05/17 1215 PATIENT NAME: JESSY SEN CONSULTATION DATE OF : 89 PHYSICIAN: CARON GARNER MD REPORT #: [id number] REPORT IS CONFIDENTIAL AND NOT TO BE RELEASED WITHOUT AUTHORIZATION
== END 2016-12-10 11:06 | disposition home or self-care (01) | DRG 394 ==
LOC: ED 20:42 → MS 23:08
PROVIDERS: ADMIT Internal Medicine
PROC: 05HM33Z Insertion of Infusion Device into Right Internal Jugular Vein, Percutaneous Approach (ICD-10-PCS; principal; 2016-12-08)
DX: E84.19 Cystic fibrosis with other intestinal manifestations (principal); K86.1 Other chronic pancreatitis; E83.42 Hypomagnesemia; E87.6 Hypokalemia; F41.0 Panic disorder [episodic paroxysmal anxiety]; E11.9 Type 2 diabetes mellitus without complications; J47.9 Bronchiectasis, uncomplicated; K86.81 Exocrine pancreatic insufficiency; Z79.891 Long term (current) use of opiate analgesic; Z79.899 Other long term (current) drug therapy; Z79.4 Long term (current) use of insulin
CPT/HCPCS: 36415; 36556; 71010; 74000; 74022; 74177; 80048; 80053; 80069; 81001; 82010; 83690; 83735; 84100; 84436; 84443; 84479; 84703; 85025; 94760; 94762; 96361; 96374; 96375; 99285; J1170; J1650; J2405; J2550; J3475; J3480; J7030; Q9967